=== PATIENT | male | born 1945 ===

== ENCOUNTER 2024-05-19 11:45 | Inpatient (IN) | payer OTHER ==
[~2024-05-19] VITALS: Ht 167.6 cm; Wt 49.9 kg
[2024-05-19] MEDS ORDERED: SULAR8.5 MG (13:56)
[2024-05-19] MEDS ORDERED: DIOVAN40 MG (13:56)
[2024-05-19] MEDS ORDERED: FINASTERIDE1 MG (13:56)
[2024-05-24] MEDS ORDERED: MORPHINE SULFATE 4 MG/ML CARTRIDGE IV PRN (07:30)
[2024-05-24] MEDS ORDERED: ONDANSETRON HCL 2 MG/ML VIAL IV PRN (07:30)
[2024-05-24] MEDS ORDERED: RINGERS SOLUTION,LACTATED 1,000 ML IV SCH (07:30)
[2024-05-24] MEDS ORDERED: OxyCODONE HCL 5 MG TABLET (ROXICODONE) PO PRN (07:30)
[2024-05-24] MEDS ORDERED: DULCOLAX5 MG (07:46)
[2024-05-24] MEDS ORDERED: MIRALAX510 GM (07:46)
[2024-05-24] MEDS ORDERED: DOXAZOSIN MESYLA2 MG (07:47)
[2024-05-24] MEDS ORDERED: FINASTERIDE5 MG (07:47)
[2024-05-24] MEDS ORDERED: ACETAMINOPHEN 500 MG GEL..CAP PO SCH (08:00)
[2024-05-24] MEDS ORDERED: METRONIDAZOLE/SODIUM CHLORIDE 500 MG/100 ML PIGGYBACK IV ONE (08:15)
[2024-05-24] MEDS ORDERED: CEFTRIAXONE SODIUM 2,000 MG VIAL IV ONE (08:15)
[2024-05-24] MEDS ORDERED: LIDOCAINE HCL 1%/EPINEPHRINE 20ML VIAL IJ ONE (08:15)
[2024-05-24] MEDS ORDERED: BUPIVACAINE HCL/PF 0.25% 50 ML VIAL IJ ONE (08:15)
[2024-05-24] MEDS ORDERED: HYOSCYAMINE SULFATE 0.125 MG TAB.SUBL SL SCH (09:00)
[2024-05-24] MEDS ORDERED: METOCLOPRAMIDE HCL 5 MG/ML VIAL IV SCH (09:00)
[2024-05-24] MEDS ORDERED: GABAPENTIN 300 MG CAPSULE PO SCH (09:00)
[2024-05-24] MEDS ORDERED: SIMETHICONE 125 MG CAPSULE PO SCH (09:00)
[2024-05-24] MEDS ORDERED: FAMOTIDINE/PF 20 MG/2 ML VIAL IV PUSH SCH (09:00)
[2024-05-24] MEDS ORDERED: LACTOBACILLUS ACIDOPHILUS 1 CAP CAP PO SCH (09:00)
[2024-05-24] MEDS ORDERED: SUGAMMADEX SODIUM 200 MG/2 ML VIAL IV ONE (10:00)
[2024-05-24 11:07] LABS: HEMOGLOBIN 14.1 g/dL (13-16.00); MEAN CELL VOLUME 94.1 fL (80.0-100.00); MEAN CORPUSCULAR HEMOGLOBIN 32.3 pg (27.00-32.0); MEAN CORPUSCULAR HGB CONC 34.3 g/dl (32.0-36.0); PLATELET COUNT 294 K/uL (150-450); RED BLOOD COUNT 4.36 M/uL (4.00-6.00); RED CELL DISTRIBUTION WIDTH 15.3 % (11.5-14.5)
[2024-05-24] MEDS ORDERED: POLYETHYLENE GLYCOL 3350 17 GM BLIST.PACK PO SCH (17:00)
[2024-05-25 07:57] LABS: HEMATOCRIT 38.4 % (39.0-48.0); HEMOGLOBIN 13.5 g/dL (13-16.00); MEAN CELL VOLUME 94.5 fL (80.0-100.00); MEAN CORPUSCULAR HEMOGLOBIN 33.2 pg (27.00-32.0); MEAN CORPUSCULAR HGB CONC 35.1 g/dl (32.0-36.0); PLATELET COUNT 218 K/uL (150-450); RED BLOOD COUNT 4.06 M/uL (4.00-6.00); RED CELL DISTRIBUTION WIDTH 14.8 % (11.5-14.5)
[2024-05-25 08:07] LABS: ALBUMIN 2.5 gm/dL (3.4-5.0); CALCIUM 8.3 mg/dL (8.5-10.1); CREATININE SERUM 0.74 mg/dL (0.70-1.30); GFR 101.51; MAGNESIUM 1.5 mg/dL (1.8-2.4); PHOSPHOROUS 2.6 mg/dL (2.5-4.9); POTASSIUM 3.42 mEq/L (3.5-5.1)
[2024-05-25] MEDS ORDERED: MEPERIDINE HCL/PF 50 MG/ML VIAL IV PRN (08:15)
[2024-05-25] MEDS ORDERED: DOXAZOSIN MESYLATE 4 MG TABLET PO SCH (09:00)
[2024-05-25] MEDS ORDERED: PATIENTS OWN MEDICATION (MEDICAMENTO EN PISO) PO SCH (09:00)
[2024-05-25] MEDS ORDERED: FINASTERIDE 5 MG TABLET PO SCH (09:00)
[2024-05-25] MEDS ORDERED: ENOXAPARIN SODIUM 40 MG/0.4 ML SYRINGE SUBCUTANEO SCH (17:00)
[2024-05-26] MEDS ORDERED: ENOXAPARIN SODIUM 40 MG/0.4 ML SYRINGE SUBCUTANEO SCH (09:00)
[2024-05-26] MEDS ORDERED: GUAIFENESIN/DEXTROMETHORPHAN 10ML BLIST.PACK PO SCH (17:00)
[2024-05-26] MEDS ORDERED: BENZONATATE 100 MG CAPSULE PO SCH (17:00)
[2024-05-26] MEDS ORDERED: FLUTICASONE PROPIONATE 50 MCG SPRAY NASAL SCH (21:00)
[2024-05-26] MEDS ORDERED: LORATADINE 10 MG TABLET PO SCH (21:00)
[2024-05-26] MEDS ORDERED: MEPERIDINE HCL/PF 50 MG/ML VIAL IM PRN (21:07)
[2024-05-27] MEDS ORDERED: GAS RELIEF125 MG PO (11:56)
[2024-05-27] MEDS ORDERED: INTESTINEX680 M1 PO (11:56)
[2024-05-27] MEDS ORDERED: TRAM1TAB98 PO (11:56)
== END 2024-05-27 16:18 | disposition home or self-care (01) | DRG 331 ==
LOC: SURG 05-24 05:17 → O/R 05-24 05:17 → SURH 05-24 09:30 → SURG 05-24 11:58
PROVIDERS: ADMIT Surgery; ATTEND Surgery
PROC: 0DBB4ZZ Excision of Ileum, Percutaneous Endoscopic Approach (ICD-10-PCS; 2024-05-24)
PROC: 0DNE4ZZ Release Large Intestine, Percutaneous Endoscopic Approach (ICD-10-PCS; 2024-05-24)
PROC: 0DTK4ZZ Resection of Ascending Colon, Percutaneous Endoscopic Approach (ICD-10-PCS; principal; 2024-05-24 09:30)
DX: K50.018 Crohn's disease of small intestine with other complication (principal); R10.33 Periumbilical pain